=== PATIENT | male | born 1930 | race Caucasian/White ===

== ENCOUNTER 2016-11-11 11:51 | Outpatient (CLI) | payer MEDICARE ==
[2016-11-11 19:55] LABS: ALBUMIN/GLOBULIN RATIO 1.1 (1.0-2.2); BILIRUBIN,TOTAL 0.8 mg/dL (0.2-1.0); BUN - BLOOD UREA NITROGEN 29 mg/dL (6-20); CALCIUM 9.1 mg/dL (8.5-10.3); CARBON DIOXIDE - CO2 26 mmol/L (21-32); CHLORIDE 104 mmol/L (101-111); CHOL/HDL RATIO 7.3 (<5.0); CHOLESTEROL 183 mg/dL; CREATININE 1.4 mg/dL (0.6-1.2); GFR - MDRD 48 (>89); GLUCOSE 124 mg/dL (70-100); HDL CHOLESTEROL 25 mg/dL; LDL/HDL RATIO 3.3 (<3.6); POTASSIUM 4.1 mmol/L (3.5-5.0); SODIUM 138 mmol/L (135-145); TOTAL PROTEIN 7.8 g/dL (6.7-8.2); TRIGLYCERIDES 381 mg/dL; VLDL CHOLESTEROL 76 mg/dL
[2016-11-11 20:08] LABS: BASOPHILS # (AUTO) 0.1 10^3/uL (0.0-0.1); BASOPHILS % (AUTO) 0.9 %; EOSINOPHILS # (AUTO) 0.3 10^3/uL (0.0-0.7); EOSINOPHILS % (AUTO) 5.3 %; HCT - HEMATOCRIT 37.7 % (42.0-52.0); HGB - HEMOGLOBIN 12.3 g/dL (14.0-18.0); LYMPHOCYTES # (AUTO) 1.1 10^3/uL (1.5-3.5); LYMPHOCYTES % (AUTO) 20.4 %; MEAN CORPUSCULAR HEMOGLOBIN 30.1 pg (27.0-31.0); MEAN CORPUSCULAR HGB CONC 32.5 g/dL (32.0-36.0); MEAN CORPUSCULAR VOLUME 92.5 fL (80.0-94.0); MEAN PLATELET VOLUME 11.1 fL (7.4-11.4); MONOCYTES # (AUTO) 0.6 10^3/uL (0.0-1.0); MONOCYTES % (AUTO) 10.3 %; NEUTROPHILS # (AUTO) 3.5 10^3/uL (1.5-6.6); NEUTROPHILS % (AUTO) 63.1 %; NUCLEATED RED BLOOD CELLS AUTO 0.2 /100WBC; RED BLOOD COUNT 4.08 10^6/uL (4.70-6.10); RED CELL DISTRIBUTION WIDTH 14.8 % (12.0-15.0); UNCORRECTED WHITE BLOOD COUNT 5.5 x10^3/uL; WHITE BLOOD COUNT 5.5 x10^3/uL (4.8-10.8)
[2016-11-11 21:11] LABS: HEMOGLOBIN A1C 0.57 g/dL
== END 2016-11-11 11:52 | disposition home or self-care (01) ==
LOC: LAB.WCP 11:51
PROVIDERS: ATTEND Family Medicine
DX: E11.51 Type 2 diabetes mellitus with diabetic peripheral angiopathy without gangrene (principal)
CPT/HCPCS: 36415; 80053; 80061; 83036; 85025

== ENCOUNTER 2017-03-05 08:36 | Outpatient (CLI) | payer MEDICARE ==
--- NOTE | 2017-03-05 12:03 | Ultrasound Report ---
AORTIC DUPLEX: 03/05/2017 CLINICAL INDICATION: Abdominal aortic aneurysm followup. COMPARISON: 04/24/2016 FINDINGS: The abdominal aorta measures 2.5 cm proximally, and 2.2 cm in the mid portion. Mild dista l aneurysmal dilatation is again seen, now measuring 3.7 x 2.6 cm (previously 3.3 x 2.9 cm). The alesia acs are normal in caliber. IMPRESSION: ALLOWING FOR DIFFERENCE IN MEASUREMENT TECHNIQUE, NO SIGNIFICANT INTERVAL CHANGE IN SMAL L DISTAL ABDOMINAL AORTIC ANEURYSM. JOB #: [id number] EXT JOB #:[id number]
== END 2017-03-05 08:37 | disposition home or self-care (01) ==
LOC: DI 08:36
PROVIDERS: ATTEND Family Medicine
DX: I71.4 Abdominal aortic aneurysm, without rupture (principal)
CPT/HCPCS: 93978

== ENCOUNTER 2017-12-26 11:12 | Outpatient (CLI) | payer MEDICARE ==
[2017-12-26 18:55] LABS: BASOPHILS # (AUTO) 0.1 10^3/uL (0.0-0.1); BASOPHILS % (AUTO) 1.1 %; EOSINOPHILS # (AUTO) 0.3 10^3/uL (0.0-0.7); EOSINOPHILS % (AUTO) 5.6 %; HGB - HEMOGLOBIN 12.5 g/dL (14.0-18.0); LYMPHOCYTES % (AUTO) 19.1 %; MEAN CORPUSCULAR HEMOGLOBIN 32.5 pg (27.0-31.0); MEAN CORPUSCULAR HGB CONC 34.7 g/dL (32.0-36.0); MEAN CORPUSCULAR VOLUME 93.6 fL (80.0-94.0); MONOCYTES # (AUTO) 0.7 10^3/uL (0.0-1.0); MONOCYTES % (AUTO) 12.9 %; NEUTROPHILS # (AUTO) 3.4 10^3/uL (1.5-6.6); NEUTROPHILS % (AUTO) 61.3 %; PLT - PLATELET COUNT 164 10^3/uL (130-450); RED BLOOD COUNT 3.86 10^6/uL (4.70-6.10); RED CELL DISTRIBUTION WIDTH 15.1 % (12.0-15.0); WHITE BLOOD COUNT 5.5 x10^3/uL (4.8-10.8)
[2017-12-26 19:34] LABS: ALBUMIN 3.6 g/dL (3.2-5.5); ALBUMIN/GLOBULIN RATIO 0.9 (1.0-2.2); ALKALINE PHOSPHATASE 63 IU/L (42-121); ALT ALANINE AMINOTRANSFERASE 31 IU/L (10-60); AST ASPARTATE AMINOTRANSFERASE 30 IU/L (10-42); BILIRUBIN,TOTAL 0.4 mg/dL (0.2-1.0); BUN - BLOOD UREA NITROGEN 31 mg/dL (6-20); CALCIUM 8.8 mg/dL (8.5-10.3); CARBON DIOXIDE - CO2 23 mmol/L (21-32); CHLORIDE 104 mmol/L (101-111); CHOL/HDL RATIO 7.9 (<5.0); CHOLESTEROL 213 mg/dL; CREATININE 1.5 mg/dL (0.6-1.2); GFR - MDRD 44 (>89); GLUCOSE 147 mg/dL (70-100); HDL CHOLESTEROL 27 mg/dL; SODIUM 136 mmol/L (135-145); TOTAL PROTEIN 7.4 g/dL (6.7-8.2)
[2017-12-26 20:31] LABS: LDL CHOLESTEROL,DIRECT 57 mg/dL; LDLD/HDL RATIO 2.1 (<3.6)
== END 2017-12-26 11:13 ==
LOC: LAB.WCP 11:12
PROVIDERS: ATTEND Family Medicine
DX: K21.9 Gastro-esophageal reflux disease without esophagitis (principal); E78.5 Hyperlipidemia, unspecified; I10 Essential (primary) hypertension
CPT/HCPCS: 36415; 80053; 80061; 83721; 85025

== ENCOUNTER 2018-01-05 16:19 | Outpatient (CLI) | payer MEDICARE ==
--- NOTE | 2018-01-06 12:46 | MRI Report ---
Procedure Date: 01/05/2018 Accession Number: [id number] / [id number] Procedure: MRI - Cervical Spine W/O CPT Code: FULL RESULT: EXAM: MRI CERVICAL SPINE WITHOUT CONTRAST EXAM DATE: 01/05/2018 05:27 PM. CLINICAL HISTORY: DEGENERATIVE DISC DISEASE, CERVICAL SPINE. COMPARISONS: MR brain 04/20/2014. TECHNIQUE: Multiplanar, multisequence T1-weighted and fluid-sensitive sequences of the cervical spine without contrast. Other: None. FINDINGS: Alignment: Straightening of the normal cervical lordosis. Neurologic Structures: The visualized posterior fossa structures are unremarkable. No signal abnormality in the visualized spinal cord. Bone Marrow: There is fusion of the C5-C6 vertebral bodies. No acute fracture seen. There is endplate edema seen at C3-C4, C4-C5, and C6-C7 that may be degenerative in nature. No definite abnormal marrow replacing lesion. Interspace Levels/Facets: C1-C2: Unremarkable. C2-C3: Mild to moderate endplate degenerative change with wndz-zl-faxudxgs loss of disk height and disk desiccation. Small central disk osteophyte complex. Bilateral uncovertebral osteophyte and arthritic facet disease. Mild spinal canal stenosis. Divi-lg-afnxycbe bilateral neural foraminal narrowing. Findings appear progressed. C3-C4: Mild to moderate endplate degenerative change with mwdl-ko-peznptng loss of disk height and disk desiccation. There is calcification of the anterior aspect of the disk. Small central disk osteophyte complex that abuts the ventral aspect of the cervical cord. Bilateral uncovertebral osteophyte and arthritic facet disease. Mild spinal canal stenosis. Moderate right and iooj-rx-irlkpkjb left neural foraminal narrowing. Findings appear progressed. C4-C5: Mild endplate degenerative change, mild loss of disk height, disk desiccation. Small broad-based disk osteophyte complex. Bilateral uncovertebral osteophyte and arthritic facet disease. Mild to moderate spinal canal stenosis. Moderate to severe bilateral neural foraminal narrowing. Findings appear progressed. C5-C6: Fusion of the endplates. Small broad-based disk osteophyte complex. Bilateral uncovertebral osteophyte and arthritic facet disease. Mild spinal canal stenosis. Moderate right and mild left neural foraminal narrowing. Findings are progressed. C6-C7: Moderate endplate degenerative change, moderate loss of disk height, and disk desiccation. Calcifications are seen within the disk. Dbcbg-cl-zdinswmi broad-based disk osteophyte complex. Bilateral uncovertebral osteophyte and arthritic facet disease. Mild to moderate spinal canal stenosis. Severe bilateral neural foraminal narrowing. Findings are progressed. C7-T1: Mild endplate degenerative change, mild loss of disk, and disk desiccation. Small posterior disk bulge. Bilateral facet disease. No spinal canal stenosis. Minimal lateral neural foraminal narrowing. Findings progressed. Musculature: Normal. No edema or fatty atrophy. Other: The paravertebral and prevertebral soft tissues are normal. IMPRESSION: 1. Straightening of the normal cervical lordosis. 2. Surgical fusion of the C5-C6 vertebral bodies. 3. Multilevel degenerative changes that appear progressed from 04/20/2014. C2-C3: Mild spinal canal stenosis. Elct-hp-vhxfpupo bilateral neural foraminal narrowing. C3-C4: Mild spinal canal stenosis. Moderate right and hhgf-el-scnpideh left neural foraminal narrowing. C4-C5: Mild to moderate spinal canal stenosis. Moderate to severe bilateral neural foraminal narrowing. C5-C6: Mild spinal canal stenosis. Moderate right and mild left neural foraminal narrowing. C6-C7: Mild to moderate spinal canal stenosis. Severe bilateral neural foraminal narrowing. Find [facility]
== END 2018-01-05 16:20 | disposition home or self-care (01) ==
LOC: DI 16:19
PROVIDERS: ATTEND Family Medicine
DX: M50.31 Other cervical disc degeneration, high cervical region (principal); M47.892 Other spondylosis, cervical region; M48.02 Spinal stenosis, cervical region; Z98.1 Arthrodesis status
CPT/HCPCS: 72141

== ENCOUNTER 2018-03-02 14:00 | Outpatient (CLI) | payer MEDICARE ==
--- NOTE | 2018-03-03 03:15 | Ultrasound Report ---
Reason: AAA, ATRIAL FIB, DIZZINESS, CAD Procedure Date: 03/02/2018 Accession Number: [id number] / [id number] Procedure: US - Duplex Aorta Complete CPT Code: FULL RESULT: EXAM: AORTIC DOPPLER ULTRASOUND EXAM DATE: 03/02/2018 03:50 PM. CLINICAL HISTORY: AAA, atrial fib, dizziness, CAD. COMPARISON: 03/05/2017. TECHNIQUE: Real-time sonographic imaging of retroperitoneal vascular structures, including color-flow, Doppler flow and spectral analysis was performed by the elevator repairer helper. Multiple internet sales representative static images were saved for review. FINDINGS: Aorta: Atheromatous calcified plaques are noted throughout the abdominal aorta. Fusiform dilation of the distal abdominal aorta measuring 3.5 x 2.7 cm. Previously measuring 2.6 x 3.7 cm. Aorta: Proximal: Sagittal AP: 2.2 cm. Mid: Transverse: 2.0 X 1.8 cm. Distal: Transverse: 2.7 X 3.5 cm. Iliacs: Right Iliac: Transverse: 1.3 X 1.2 cm. Left Iliac: Transverse: 1.4 X 1.3 cm. Doppler: Proximal Aorta PSV: 69 cm/sec. Mid Aorta PSV: 85 cm/sec. Distal Aorta PSV: 83 cm/sec. Proximal RCIA PSV: cm/ Proximal RCIA PSV: 121 cm/sec. Proximal LCIA PSV: 169 cm/sec. Iliac Vessels: The visualized proximal common iliac arteries are normal in caliber. Other: None. IMPRESSION: Stable distal abdominal aortic aneurysm. [facility]
== END 2018-03-02 14:01 | disposition home or self-care (01) ==
LOC: DI 14:00
PROVIDERS: ATTEND Family Medicine
DX: I71.4 Abdominal aortic aneurysm, without rupture (principal); I48.0 Paroxysmal atrial fibrillation; I25.10 Atherosclerotic heart disease of native coronary artery without angina pectoris; R42 Dizziness and giddiness
CPT/HCPCS: 93306; 93978

== ENCOUNTER 2018-05-12 11:16 | Outpatient (CLI) | payer MEDICARE | END 2018-05-12 11:17 | disposition home or self-care (01) | LOC: SC 11:16 | PROVIDERS: ATTEND Internal Medicine Pulmonary Disease | DX: G47.31 Primary central sleep apnea (principal) | CPT/HCPCS: 99203; G0463; 99212 ==

== ENCOUNTER 2018-06-28 18:48 | Outpatient (CLI) | payer MEDICARE | END 2018-06-28 18:49 | disposition home or self-care (01) | LOC: SC 18:48 | PROVIDERS: ATTEND Internal Medicine Pulmonary Disease | DX: G47.31 Primary central sleep apnea (principal); G47.33 Obstructive sleep apnea (adult) (pediatric) | CPT/HCPCS: 95810 ==

== ENCOUNTER 2018-07-22 12:58 | Outpatient (CLI) | payer MEDICARE | END 2018-07-22 12:59 | disposition home or self-care (01) | LOC: SC 12:58 | PROVIDERS: ATTEND Nurse Practitioner Family | DX: G47.33 Obstructive sleep apnea (adult) (pediatric) (principal); G47.31 Primary central sleep apnea | CPT/HCPCS: 99214; G0463; 99212 ==

== ENCOUNTER 2018-07-26 20:18 | Outpatient (CLI) | payer MEDICARE | END 2018-07-26 20:19 | disposition home or self-care (01) | LOC: SC 20:18 | PROVIDERS: ATTEND Internal Medicine Pulmonary Disease | DX: G47.31 Primary central sleep apnea (principal) | CPT/HCPCS: 95811 ==

== ENCOUNTER 2018-08-06 14:25 | Outpatient (CLI) | payer MEDICARE | END 2018-08-06 14:26 | disposition home or self-care (01) | LOC: SC 14:25 | PROVIDERS: ATTEND Nurse Practitioner Family | DX: G47.33 Obstructive sleep apnea (adult) (pediatric) (principal); G47.31 Primary central sleep apnea | CPT/HCPCS: 99214; G0463; 99212 ==